=== PATIENT | male | born 1965 | race Caucasian/White ===

== ENCOUNTER 2017-05-13 10:25 | Inpatient (IN) | payer OTHER ==
[~2017-05-13] VITALS: Ht 165.1 cm; Wt 50.0 kg
[2017-05-13] VITALS (11 sets, daily range): BP systolic 115–140; BP diastolic 65–84
--- NOTE | 2017-05-13 10:41 | NUR ---
PATIENT TO ROOM VIA EMS. GUARDS AT BEDSIDE. PHYSICIAN NOTIFIED OF PATIENT STATUS AND BODY CORE TEMP TAKEN
--- NOTE | 2017-05-13 11:00 | NUR ---
CALLED LETICIA AT [facility] TO CONFIRM PATIENT RECIEVED 5 LITERS OF NORMAL SALINE. LETICIA CONFIRMED THAT AMOUNT
[2017-05-13 11:09] LABS: URINE BILIRUBIN - DIPSTICK NEGATIVE (NEGATIVE); URINE BLOOD DIPSTICK NEGATIVE (NEGATIVE); URINE CLARITY CLEAR; URINE COLOR YELLOW; URINE GLUCOSE - DIPSTICK 500 mg/dL (NEGATIVE); URINE KETONE NEGATIVE (NEGATIVE); URINE LEUK ESTERASE NEGATIVE (NEGATIVE); URINE NITRITE - DIPSTICK NEGATIVE (Negative); URINE PROTEIN - DIPSTICK NEGATIVE (NEG-TRACE); URINE SPECIFIC GRAVITY <=1.005; URINE UROBILINOGEN - DIPSTICK 0.2 E.U./dL (0.2)
[2017-05-13 11:10] LABS: HEMATOCRIT 45.2 % (39.0-50.0); HEMOGLOBIN 14.5 g/dl (14.0-18.0); IMMATURE GRANULOCYTES 0.4 % (0.0-1.0); MEAN CELL VOLUME 101.3 fL CALC (80.0-100.0); MEAN CORPUSCULAR HGB 32.5 pG CALC (26.0-32.0); MEAN CORPUSCULAR HGB CONC 32.1 g/L CALC (32.0-36.0); NEUT# 5.77 thou/uL (1.82-7.42); RED BLOOD COUNT 4.46 mill/uL (4.70-6.10); RED CELL DISTRI WIDTH 12.8 % (11.5-15.5)
[2017-05-13 11:16] LABS: BARBITURATES NEGATIVE (NEGATIVE); COCAINE NEGATIVE (NEGATIVE); METHADONE NEGATIVE (NEGATIVE); OXCYCODONE NEGATIVE (NEGATIVE); TETRAHYDROCANNABIONOL NEGATIVE (NEGATIVE); TRICYLIC ANTIDEPRESSANTS NEGATIVE (NEGATIVE)
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
[2017-05-13 11:25] LABS: ALBUMIN 3.8 g/dL (3.2-5.0); ALKALINE PHOSPHATASE 54 u/l (38-126); ANION GAP 14 (6-22 (CALC)); BILIRUBIN, TOTAL 0.8 mg/dL (0.0-1.4); BUN 7 mg/dL (9-20); BUN/CREATININE RATIO 9 (12-20 (CALC)); CARBON DIOXIDE 22 mmol/l (22-30); CHLORIDE 113 mmol/l (95-108); CREATININE 0.8 mg/dL (0.7-1.3); ETHYL ALCOHOL 0 mg/dl (0-30); GFR > 60 ML/MIN (>=60 (CALC)); GFR FOR AFR.AMER. > 60 ML/MIN (>=60 (CALC)); GLUCOSE 82 mg/dL (75-110); POTASSIUM 4.2 mmol/l (3.5-5.1); SGOT/AST 20 u/l (17-59); SGPT/ALT 28 u/l (21-72); SODIUM 144 mmol/l (137-146); TOTAL PROTEIN 6.7 g/dL (6.3-8.2)
--- NOTE | 2017-05-13 11:40 | NUR ---
POISON CONTROL CALLED BACK AND GIVEN UPDATE. POISON CONTROL RECOMMENDS HOURLY BLOOD SUGAR CHECKS
--- NOTE | 2017-05-13 11:51 | NUR ---
BS 50 PATIENT GIVEN D50 MD MADE AWARE AND ORDERS RECIEVED
--- NOTE | 2017-05-13 12:30 | NUR ---
PATIENT AWAKE AND LETHARGIC. PATIENT ORIENTED TO PERSON PLACE AND TIME. PATIENT AWARE OF CURRENT PLAN OF CARE.
--- NOTE | 2017-05-13 12:50 | NUR ---
ACCU CHECK COMPLETED AND PATIENT BLOOD SUGAR IS LOW. MADE AWARE AND VERBAL ORDERS RECIEVED. REPORT GIVEN TO LETICIA AT [facility] ON PATIENTS STATUS. LETICIA STATES PATIENT SYSTOLIC BP NORMALY AROUND 120.
--- NOTE | 2017-05-13 13:48 | NUR ---
REPORT CALLED TO ICU. PATIENT REMAINS LETHARGIC BUT AWAKENS TO CALLING OF HIS NAME. PATIENT ORIENTED TO PERSON PLACE AND TIME. PATIENT DENIES ANY PAIN, DISCOMFORT OR SOB AT THIS TIME.
--- NOTE | 2017-05-13 14:02 | NUR ---
TOTAL URINE OUTPUT 2400ML STRAW COLORED URINE
--- NOTE | 2017-05-13 14:25 | NUR ---
PT ARRIVED TO THE FLOOR VIA STRETCHER WITH TWO MEMBERS OF STAFF AND TWO CORRECTIONS OFFICERS. PT IS ALERT AND ORIENTATED. BS IS 55, ABLE TO TOLERATE PO INTAKE, GIVEN JUICE, ENSURE, APPLE, AND EMELYN CRACKERS. WILL RE-CHECK AFTER FINISHED EATING. PT DENIES FEELING S/S OF HYPOGLYCEMIA. ASSESSMENT PERFORMED. PT SHACKELED TO BED. CALL LIGHT WITHIN REACH. WILL CONTINUE TO MONITOR.
--- NOTE | 2017-05-13 16:00 | NUR ---
BS REMAINS THE SAME 149. WILL CONTINUE TO MONITOR. CALL LIGHT WITHIN REACH. PT DENIES NEEDS
--- NOTE | 2017-05-13 18:00 | NUR ---
PT INFORMATION SECURITY OFFICER LIGHT, STATES, I HAVE TO GET THIS CATHETER OUT, I REALLY HAVE TO PEE. CATHETER REMOVED, 1600 CC EMPTIED FROM URINAL. PT GIVEN URINAL. GUARD PRESENT.
--- NOTE | 2017-05-13 19:05 | NUR ---
pt awake in bed; no distress noted; pt offers no complaints; assessment completed at this time; pt alert and oriented; denies pain; no n/v noted; perrla; resp even and unlabored; lungs clear throughout; skin color wnl; ra; hr reg; sr on monitor; strong pulses; no edema noted; abd soft with bs present; no bm noted per technical document writer; pt denies voiding since simmons cath removal; urinal at bedside; #18 in rfa flushed and patent; #18 in lfa with ivf infusing without complication; no redness or edema noted at site; accucheck 158; vss; plan of care/ ivf explained; correctional officers x2 at bedside; shackles noted to bilat ankles; call light within reach; will continue to monitor
--- NOTE | 2017-05-13 19:30 | NUR ---
laborer shellfish processing at bedside
--- NOTE | 2017-05-13 20:02 | NUR ---
awake; no distress noted; offers no complaints; sr on monitor; accucheck of 111; iv patent; call light within reach; will continue to monitor
--- NOTE | 2017-05-13 21:00 | NUR ---
awake; offers no complaints; no distress noted; officers x2 remain at bedside; accucheck of 124; po fluids provided; pt able to void 650cc clear yellow urine without pain or burning; call light within reach; will continue to monitor
--- NOTE | 2017-05-13 22:03 | NUR ---
awake; no distress noted; sr on monitor; accucheck 124; will continue to monitor
--- NOTE | 2017-05-13 22:19 | NUR ---
poison control Helen called this content writer; updated on pt condition, labs, vs; poison control to follow up in am
[2017-05-14 00:05] VITALS: BP 120/77
--- NOTE | 2017-05-14 00:05 | NUR ---
awake; offers no complaints; iv patent; no redness or edema noted at site; sr on monitor; no neuro deficits noted; accucheck 81; po juice provided as per request; officers x2 remain at bedside; call light within reach; will continue to monitor
--- NOTE | 2017-05-14 02:00 | NUR ---
awake; no distress noted; sr on monitor; call light within reach; will continue to monitor
[2017-05-14 02:05] VITALS: BP 119/73
[2017-05-14 04:05] VITALS: BP 129/80
--- NOTE | 2017-05-14 04:05 | NUR ---
awake watching tv; no distress noted; resp even and unlabored; offers no complaints; sr on monitor; correctional officers x2 remain at bedside; iv patent; no redness or edema noted at site; call light within reach; will continue to monitor
--- NOTE | 2017-05-14 05:49 | NUR ---
awake; no distress during the night; laborer operator at bedside; iv patent; no redness or edmea noted at site; sr on monitor; no change in neuro status; bed in lowest position; will continue to monitor
[2017-05-14 06:08] VITALS: BP 119/74
[2017-05-14 06:22] LABS: HEMATOCRIT 40.3 % (39.0-50.0); HEMOGLOBIN 13.3 g/dl (14.0-18.0); MEAN CELL VOLUME 98.8 fL CALC (80.0-100.0); MEAN CORPUSCULAR HGB 32.6 pG CALC (26.0-32.0); RED BLOOD COUNT 4.08 mill/uL (4.70-6.10); RED CELL DISTRI WIDTH 12.8 % (11.5-15.5)
--- NOTE | 2017-05-14 07:40 | NUR ---
PT AWAKE ALERT; DENIES PAIN; GUARDS X2 AT BEDSIDE; IVF INFUSING WITHOUT DIFFICULTY, NO REDNESS OR EDEMA NOTED; BILAT LE SHACKLED TO BED, FULL ROM; PT SR; CALL VICK WITHIN REACH; WILL CONTINUE TO MONITOR.
--- NOTE | 2017-05-14 08:15 | NUR ---
DR. COHEN IN TO SEE PT;
== END 2017-05-14 10:00 | DRG 918 ==
LOC: ENPENDDIS → ED 10:25 → ED-I 12:05 → ED 12:27 → ICU 12:28
PROVIDERS: Emergency Medicine; ADMIT Internal Medicine; ATTEND Internal Medicine
PROC: 0T9B70Z Drainage of Bladder with Drainage Device, Via Natural or Artificial Opening (ICD-10-PCS; principal; 2017-05-13)
DX: T50.901A Poisoning by unspecified drugs, medicaments and biological substances, accidental (unintentional), initial encounter (principal); I95.89 Other hypotension; R68.0 Hypothermia, not associated with low environmental temperature; R00.1 Bradycardia, unspecified; E16.1 Other hypoglycemia; Y92.149 Unspecified place in prison as the place of occurrence of the external cause; Z87.891 Personal history of nicotine dependence